=== PATIENT | female | born 1945 | race Caucasian/White ===

== ENCOUNTER 2020-02-06 08:07 | Outpatient (CLI) | payer OTHER | END 2020-02-06 08:10 | disposition home or self-care (01) | LOC: SONOGRAMA 08:07 | DX: R10.11 Right upper quadrant pain (principal); K81.0 Acute cholecystitis ==

== ENCOUNTER 2020-03-13 07:45 | Outpatient (CLI) | payer OTHER | END 2020-03-13 08:23 | disposition home or self-care (01) | LOC: TOM 07:45 | DX: C83.80 Other non-follicular lymphoma, unspecified site (principal) | CPT/HCPCS: 71260; 74177; Q9965 ==